=== PATIENT | male | born 1995 | race Caucasian/White ===

== ENCOUNTER 2017-10-09 21:59 | Emergency (ER) | payer SELFPAY ==
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
== END 2017-10-09 23:22 | disposition home or self-care (01) ==
LOC: JP.ED 21:59
DX: S63.502A Unspecified sprain of left wrist, initial encounter (principal); S50.12XA Contusion of left forearm, initial encounter; S60.222A Contusion of left hand, initial encounter; V80.919A Animal-rider injured in unspecified transport accident, initial encounter
CPT/HCPCS: 73090-26-LT; 73090-LT; 73110-26-LT; 73110-LT; 73130-26-LT; 73130-LT; 99284